=== PATIENT | female | born 1990 | race Caucasian/White ===

== ENCOUNTER 2017-06-22 17:52 | Observation (INO) | payer MEDICAID ==
--- NOTE | 2017-06-22 18:36 | ED PDOC ---
HPI: Abdomen Time Seen by Provider: 06/22/17 18:19 Chief Complaint (Nursing): Abdominal Pain Chief Complaint (Provider): Abdominal Pain History Per: Patient History/Exam Limitations: no limitations Onset/Duration Of Symptoms: Hrs Current Symptoms Are (Timing): Still Present Additional Complaint(s): Chris Holcomb is a 27 year old female with a history of congestive heary failure that presents to the ED with a chief complaint of burning epigastric pain that radiates to both arms that she began experiencing earlier this afternoon. Patient denies any shortness of breath, chest pain, palpitations, or dizziness. Past Medical History Reviewed: Historical Data, Nursing Documentation, Vital Signs Vital Signs: Last Vital Signs Temp 99.2 F 06/22/17 18:02 Pulse 94 H 06/22/17 18:02 Resp 20 06/22/17 18:02 BP 165/112 H 06/22/17 18:02 Pulse Ox 99 06/22/17 18:41 - Medical History PMH: CHF, HTN - Family History Family History: States: Unknown Family Hx - Allergies Allergies/Adverse Reactions: Allergies Allergy/AdvReac Type Severity Reaction Status Date / Time No Known Allergies Allergy Verified 10/30/14 10:49 Review of Systems Cardiovascular: Negative for: Chest Pain, Palpitations Respiratory: Negative for: Shortness of Breath Gastrointestinal: Positive for: Other (burning epigastric pain) Musculoskeletal: Positive for: Arm Pain (b/l arm pain as a result of radiating epigastric pain) Neurological: Negative for: Dizziness Physical Exam - Reviewed Nursing Documentation Reviewed: Yes Vital Signs Reviewed: Yes - Physical Exam Appears: Positive for: Non-toxic, No Acute Distress Head Exam: Positive for: ATRAUMATIC, NORMOCEPHALIC Skin: Positive for: Normal Color, Warm Cardiovascular/Chest: Positive for: Regular Rate, Rhythm. Negative for: Murmur Respiratory: Positive for: Normal Breath Sounds. Negative for: Wheezing Gastrointestinal/Abdominal: Positive for: Tenderness (mild epigastric tenderness ). Negative for: Normal Exam Extremity: Positive for: Normal ROM. Negative for: Tenderness, Swelling Neurologic/Psych: Positive for: Alert, Oriented. Negative for: Motor/Sensory Deficits - Laboratory Results Result Diagrams: 06/22/17 18:42 - ECG O2 Sat by Pulse Oximetry: 99 (RA) Pulse Ox Interpretation: Normal Medical Decision Making Medical Decision Making: Impression: Epigastric Pain Plan: * EKG * Chest X-Ray * CMP * CBC * Troponin * Adenosine Inj 12 mg * Reevaluation hospital monitor appears to be showing SVT at 180, however, repeat EKG reveals NSR at [address] changes. Scribe Attestation: Documented by Clary Gant, acting as a scribe for Manuel Soriano MD. Provider Scribe Attestation: All medical record entries made by the Scribe were at my direction and personally dictated by me. I have reviewed the chart and agree that the record accurately reflects my personal performance of the history, physical exam, medical decision making, and the department course for this patient. I have also personally directed, reviewed, and agree with the discharge instructions and disposition. Disposition - Clinical Impression Clinical Impression: Chest pain, Abdominal pain - Patient ED Disposition Is Patient to be Admitted: Transfer of Care - Disposition Disposition: Transfer of Care Disposition Time: 19:05 Condition: FAIR Forms: [employer] (Romanian) Patient Signed Over To: Benjamin Perez
[2017-06-22 18:55] LABS: BASO # 0.1 K/uL (0.0-0.2); EOS # 0.2 K/uL (0.0-0.7); EOS % 2.8 % (0.0-4.0); HEMATOCRIT 37.1 % (34.0-47.0); LYMPH # 3.3 K/uL (1.0-4.3); LYMPH % 39.2 % (20.0-40.0); MEAN CELL VOLUME 78.6 fl (81.0-99.0); MEAN CORPUSCULAR HEMOGLOBIN 24.8 pg (27.0-31.0); MEAN CORPUSCULAR HGB CONC 31.6 g/dL (33.0-37.0); MEAN PLATELET VOLUME 9.8 fl (7.2-11.7); MONO # 0.6 K/uL (0.0-0.8); MONO % 7.4 % (0.0-10.0); NEUT # 4.1 K/uL (1.8-7.0); NEUT % 49.6 % (50.0-75.0); NRBC % 0.1 % (0.0-0.0); WHITE BLOOD COUNT 8.3 K/uL (4.8-10.8)
[2017-06-22 19:05] LABS: ALB/GLOB RATIO 1.3 (1.0-2.1); ALKALINE PHOSPHATASE 75 U/L (38-126); ALT/SGPT 37 U/L (9-52); AST/SGOT 39 U/L (14-36); BILIRUBIN,TOTAL 0.3 mg/dl (0.2-1.3); BLOOD UREA NITROGEN 11 mg/dl (7-17); CALCIUM 8.3 mg/dL (8.4-10.2); CARBON DIOXIDE 24 mmol/L (22-30); CHLORIDE 105 mmol/L (98-107); GFR AFRICAN-AMERICAN > 60; GLUCOSE,RANDOM 81 mg/dL (65-105); POTASSIUM 3.6 MMOL/L (3.6-5.0); SODIUM 141 mmol/l (132-148); TOTAL PROTEIN 7.3 G/DL (6.3-8.2)
--- NOTE | 2017-06-22 19:07 | RAD ---
HISTORY: Cough. Technique: Single view portable semi erect @ 18:45. COMPARISON: No prior. FINDINGS: LUNGS: No active pulmonary disease. PLEURA: No significant pleural effusion identified, no pneumothorax apparent. CARDIOVASCULAR: Cardiomegaly. No evidence of acute, significant cardiovascular disease. OSSEOUS STRUCTURES: No significant abnormalities. VISUALIZED UPPER ABDOMEN: Normal. OTHER FINDINGS: None. IMPRESSION: No active disease.
--- NOTE | 2017-06-22 19:29 | ED PDOC ---
- Laboratory Results Result Diagrams: 06/22/17 18:42 06/22/17 18:42 - ECG O2 Sat by Pulse Oximetry: 99 (RA) Medical Decision Making Medical Decision Makin:00 Patient signed over to me by Dr. Soriano pending labs and reevaluation. 20:00 Lab results show no clinically significant abnormalities. Given patient's past medical history and risk factors, will be placed on Obs status for chest pain. Will be referred to Dr. Patton, medicine stationary boiler fireman. 20:24 Patient subsequently informed provider she has decided to leave against medical advice.. This in direct contradiction of provider's advice. Patient has assumed all risks and liabilities which include, but are not limited to and permanent disability. She was encouraged to return to this facility or any other facility of her choice should she reverse her decision. She also informed provider she will follow up with her E Business Manager (Dr Holly Thomas and PCP Dr Luna Augustin) Provider has spoken to Dr. Patton and informed him of patient's decision. Scribe Attestation: Documented by Clary Gant, acting as a scribe for Benjamin Perez MD. Provider Scribe Attestation: All medical record entries made by the Scribe were at my direction and personally dictated by me. I have reviewed the chart and agree that the record accurately reflects my personal performance of the history, physical exam, medical decision making, and the department course for this patient. I have also personally directed, reviewed, and agree with the discharge instructions and disposition. Disposition - Clinical Impression Clinical Impression: Chest pain, Abdominal pain - POA Present On Arrival: None - Disposition Disposition: AGAINST MEDICAL ADVICE Disposition Time: 20:24 Condition: FAIR
[2017-06-22 20:12] VITALS: RESP 18
[2017-06-22 20:29] VITALS: O2SAT 99
[2017-06-22 20:42] VITALS: BP 130/72; PULSE 81; TEMP 98.1
--- NOTE | 2017-06-23 09:13 | CARD ---
APPROVED REPORT EKG Measurement Heart [id number] ID [id number] <Conclusion> Normal sinus rhythm Moderate voltage criteria for LVH, may be normal variant Prolonged QT Abnormal ECG
== END 2017-06-22 20:42 | disposition left against medical advice (07) ==
LOC: H.ER 17:52 → H.ERHOLD 19:43
PROVIDERS: ADMIT Internal Medicine; ATTEND Internal Medicine
DX: R07.9 Chest pain, unspecified (principal); R10.9 Unspecified abdominal pain; I11.0 Hypertensive heart disease with heart failure; I50.9 Heart failure, unspecified
CPT/HCPCS: 71010; 80053; 81025; 82948; 84484; 85025; 93005; 99285; G0378

== ENCOUNTER 2018-01-03 20:03 | Observation (INO) | payer MEDICAID ==
[2018-01-03] MEDS ORDERED: Sodium Chloride 0.9% 500 ML IV STA (20:26)
--- NOTE | 2018-01-03 20:30 | ED PDOC ---
HPI: Chest Pain Time Seen by Provider: 01/03/18 20:13 Chief Complaint (Nursing): Chest Pain Chief Complaint (Provider): chest pain History Per: Patient History/Exam Limitations: no limitations Onset/Duration Of Symptoms: Days Current Symptoms Are (Timing): Still Present Additional Complaint(s): Pt. with chest pain. 1 week off and on sporadically. Pt. with dyspnea off and on. Pt. with no leg pain, long distance travel, or hormone tx. No weakness, dizziness. No headache. No fever, cough. No nausea, vomit, diarrhea. Past Medical History Reviewed: Nursing Documentation, Vital Signs Vital Signs: Last Vital Signs Temp Pulse 81 01/03/18 21:18 Resp 20 01/03/18 21:18 BP 139/87 01/03/18 21:18 Pulse Ox 100 01/03/18 21:18 - Medical History PMH: CHF, Diabetes, HTN - Surgical History Surgical History: Pacemaker - Family History Family History: States: Unknown Family Hx - Living Arrangements Living Arrangements: With Family - Social History Alcohol: None Drugs: Denies - Immunization History Hx Tetanus Toxoid Vaccination: Yes Hx Influenza Vaccination: No Hx Pneumococcal Vaccination: No - Allergies Allergies/Adverse Reactions: Allergies Allergy/AdvReac Type Severity Reaction Status Date / Time No Known Allergies Allergy Verified 01/03/18 20:09 Review of Systems ROS Statement: Except As Marked, All Systems Reviewed And Found Negative Cardiovascular: Positive for: Chest Pain Respiratory: Positive for: Shortness of Breath Physical Exam - Reviewed Nursing Documentation Reviewed: Yes Vital Signs Reviewed: Yes - Physical Exam Appears: Positive for: Non-toxic, No Acute Distress Head Exam: Positive for: ATRAUMATIC, NORMAL INSPECTION, NORMOCEPHALIC Skin: Positive for: Normal Color, Warm, DRY Eye Exam: Positive for: EOMI, Normal appearance, PERRL ENT: Positive for: Normal ENT Inspection Neck: Positive for: Normal, Painless ROM Cardiovascular/Chest: Positive for: Regular Rate, Rhythm Respiratory: Positive for: CNT, Normal Breath Sounds Gastrointestinal/Abdominal: Positive for: Normal Exam, Bowel Sounds, Soft. Negative for: Tenderness Back: Positive for: Normal Inspection. Negative for: L CVA Tenderness, R CVA Tenderness Extremity: Positive for: Normal ROM. Negative for: Tenderness, Pedal Edema Neurologic/Psych: Positive for: Alert, Oriented - Laboratory Results Result Diagrams: 01/03/18 21:06 01/03/18 21:06 Interpretation Of Abn Labs: 3.3 k - ECG ECG: Positive for: Interpreted By Me, Viewed By Me ECG Rhythm: Positive for: Sinus Rhythm, Nonspecific Changes - Radiology X-Ray: Interpreted by Me, Viewed By Me X-Ray Interpretation: No Acute Disease - Progress ED Course And Treament: 2240: Stable. AAOx3. Spoke with Dr. Foss. Will admit tell and give further orders when pt. reaches floor. Pt. is pain free currently and had asa 324mg by ambulance and ntg. Disposition - Clinical Impression Clinical Impression: Acute chest pain - Patient ED Disposition Is Patient to be Admitted: Yes Counseled Patient/Family Regarding: Studies Performed, Diagnosis - Disposition Disposition Time: 22:50 Condition: FAIR - POA Present On Arrival: None
[2018-01-03 21:17] LABS: BASO # 0.1 K/uL (0.0-0.2); BASO % 1.1 % (0.0-2.0); EOS # 0.2 K/uL (0.0-0.7); EOS % 2.2 % (0.0-4.0); HEMOGLOBIN 12.5 g/dL (12.0-16.0); LYMPH # 2.4 K/uL (1.0-4.3); LYMPH % 33.2 % (20.0-40.0); MEAN CELL VOLUME 77.1 fl (81.0-99.0); MEAN CORPUSCULAR HEMOGLOBIN 24.7 pg (27.0-31.0); MEAN CORPUSCULAR HGB CONC 32.1 g/dL (33.0-37.0); MEAN PLATELET VOLUME 9.3 fl (7.2-11.7); MONO # 0.4 K/uL (0.0-0.8); MONO % 6.1 % (0.0-10.0); NEUT # 4.1 K/uL (1.8-7.0); NEUT % 57.4 % (50.0-75.0); RBC 5.04 Mil/uL (3.80-5.20); RED CELL DISTRIBUTION WIDTH 15.8 % (11.5-14.5); WHITE BLOOD COUNT 7.2 K/uL (4.8-10.8)
[2018-01-03 21:23] LABS: ALB/GLOB RATIO 1.1 (1.0-2.1); ALBUMIN 4.1 g/dL (3.5-5.0); ALT/SGPT 41 U/L (9-52); AST/SGOT 41 U/L (14-36); BLOOD UREA NITROGEN 11 mg/dl (7-17); CALCIUM 9.2 mg/dL (8.4-10.2); GFR AFRICAN-AMERICAN > 60; GFR NON-AFRICAN AMERICAN > 60
[2018-01-03 21:24] LABS: PARTIAL THROMBOPLASTIN TIME 32.8 Seconds (25.6-37.1); PROTHROMBIN TIME 11.3 Seconds (9.8-13.1)
[2018-01-03 21:35] LABS: B-TYPE NATRIURETIC PEPTIDE 427 pg/ml (0-450)
[2018-01-03] MEDS ORDERED: Potassium Chloride 20 mEq ER Tab PO STA (22:43)
[2018-01-03] MEDS ORDERED: Potassium Chloride 20 mEq ER Tab PO ONE (23:38)
[2018-01-04 06:00] LABS: ALB/GLOB RATIO 1.1 (1.0-2.1); ALBUMIN 3.6 g/dL (3.5-5.0); ALT/SGPT 34 U/L (9-52); AST/SGOT 42 U/L (14-36); BLOOD UREA NITROGEN 13 mg/dl (7-17); CALCIUM 8.6 mg/dL (8.4-10.2); GFR AFRICAN-AMERICAN > 60; GFR NON-AFRICAN AMERICAN > 60
[2018-01-04 06:09] LABS: HEMOGLOBIN 11.5 g/dL (12.0-16.0); MEAN CELL VOLUME 76.2 fl (81.0-99.0); MEAN CORPUSCULAR HGB CONC 32.8 g/dL (33.0-37.0); RBC 4.6 Mil/uL (3.80-5.20); RED CELL DISTRIBUTION WIDTH 15.1 % (11.5-14.5); WHITE BLOOD COUNT 7.5 K/uL (4.8-10.8)
--- NOTE | 2018-01-04 08:35 | CP.PCM.HP ---
History of Present Illness - History of Present Illness History of Present Illness: Patient evaluated with Dr Foss during rounds 27 y/o obese, presented to ED c/o intermittent CP and SOB for 1 week. She has strong cardiac hx including cardiomyopathy and is s/p AICD. Patient was admitted for ccardiology evaluation and monitoring. Today patient is in not acute distress, speak full sentences, no acute events overnight. Denies CP or SOB at ths time. denies abd pain, vomiting, nausea, headache or vision changes. Present on Admission - Present on Admission Any Indicators Present on Admission: No Review of Systems - Review of Systems All systems: reviewed and no additional remarkable complaints except (as per HPi ) Past Patient History - Past Medical History & Family History Past Medical History?: Yes - Past Social History Smoking Status: Never Smoked - CARDIAC Hx Cardiac Disorders: Yes Hx Congestive Heart Failure: Yes Hx Hypertension: Yes Hx Internal Defibrillator: Yes - PULMONARY Hx Respiratory Disorders: Yes Hx Sleep Apnea: Yes - RENAL Hx Chronic Kidney Disease: No - ENDOCRINE/METABOLIC Hx Diabetes Mellitus Type 2: Yes - MUSCULOSKELETAL/RHEUMATOLOGICAL Hx Falls: No - PSYCHIATRIC Hx Substance Use: No - SURGICAL HISTORY Hx Surgeries: Yes Other/Comment: AICD - ANESTHESIA Hx Anesthesia: Yes Hx Anesthesia Reactions: No Meds Allergies/Adverse Reactions: Allergies Allergy/AdvReac Type Severity Reaction Status Date / Time No Known Allergies Allergy Verified 01/03/18 20:09 Physical Exam - Constitutional Appears: Non-toxic, No Acute Distress - Head Exam Head Exam: NORMAL INSPECTION - Eye Exam Eye Exam: EOMI, PERRL - ENT Exam ENT Exam: Mucous Membranes Moist - Respiratory Exam Respiratory Exam: Decreased Breath Sounds, Clear to Auscultation Bilateral, NORMAL BREATHING PATTERN. absent: Rales, Wheezes, Respiratory Distress - Cardiovascular Exam Cardiovascular Exam: REGULAR RHYTHM, +S1, +S2. absent: Gallop - GI/Abdominal Exam GI & Abdominal Exam: Normal Bowel Sounds, Soft. absent: Diminished Bowel Sounds , Distended, Firm, Guarding, Rebound, Rigid, Tenderness - Extremities Exam Extremities exam: Positive for: normal capillary refill, pedal edema (trace). Negative for: calf tenderness, joint swelling, tenderness - Back Exam Back exam: absent: CVA tenderness (L), CVA tenderness (R) - Neurological Exam Neurological exam: Alert, Oriented x3 - Psychiatric Exam Psychiatric exam: Normal Affect, Normal Mood - Skin Skin Exam: Normal Color, Warm Results - Vital Signs Recent Vital Signs: Last Vital Signs Temp 98.3 F 01/04/18 08:00 Pulse 83 01/04/18 08:00 Resp 20 01/04/18 08:00 BP 115/76 01/04/18 08:00 Pulse Ox 98 01/04/18 08:00 - Labs Result Diagrams: 01/04/18 05:27 01/04/18 05:27 Labs: Laboratory Results - last 24 hr 01/03/18 01/03/18 01/03/18 21:06 21:06 21:06 WBC 7.2 RBC 5.04 Hgb 12.5 Hct 38.9 MCV 77.1 L MCH 24.7 L MCHC 32.1 L RDW 15.8 H Plt Count 234 MPV 9.3 Neut % (Auto) 57.4 Lymph % (Auto) 33.2 [place] % (Auto) 6.1 Eos % (Auto) 2.2 Baso % (Auto) 1.1 Neut # (Auto) 4.1 Lymph # (Auto) 2.4 [place] # (Auto) 0.4 Eos # (Auto) 0.2 Baso # (Auto) 0.1 PT 11.3 INR 1.0 APTT 32.8 Sodium 144 Potassium 3.3 L Chloride 101 Carbon Dioxide 30 Anion Gap 16 BUN 11 Creatinine 0.9 Est GFR ( Amer) > 60 Est GFR (Non-Af Amer) > 60 Random Glucose 111 H Calcium 9.2 Total Bilirubin 0.6 AST 41 H ALT 41 Alkaline Phosphatase 62 Troponin I 0.0290 NT-Pro-B Natriuret Pep 427 Total Protein 7.8 Albumin 4.1 Globulin 3.7 Albumin/Globulin Ratio 1.1 01/04/18 01/04/18 05:27 05:27 WBC 7.5 RBC 4.60 Hgb 11.5 L Hct 35.0 MCV 76.2 L MCH 25.0 L MCHC 32.8 L RDW 15.1 H Plt Count 240 MPV Neut % (Auto) Lymph % (Auto) [place] % (Auto) Eos % (Auto) Baso % (Auto) Neut # (Auto) Lymph # (Auto) [place] # (Auto) Eos # (Auto) Baso # (Auto) PT INR APTT Sodium 142 Potassium 3.2 L Chloride 100 Carbon Dioxide 32 H Anion Gap 13 BUN 13 Creatinine 1.0 Est GFR ( Amer) > 60 Est GFR (Non-Af Amer) > 60 Random Glucose 123 H Calcium 8.6 Total Bilirubin 0.3 AST 42 H ALT 34 Alkaline Phosphatase 63 Troponin I NT-Pro-B Natriuret Pep Total Protein 6.9 Albumin 3.6 Globulin 3.3 Albumin/Globulin Ratio 1.1 Assessment & Plan - Assessment and Plan (Free Text) Assessment: Dilated Cardiomyopathy/Systolic chronic CHF AICD status Atypical CP and SOB on exertion Hypokalemia Cardiology consult appreciated HCTZ 12.5 mg daily VS stable replace potassium F/U Echo EKG: LVH, no acute ischemic changes
[2018-01-04] MEDS ORDERED: Enoxaparin 40 mg Syringe SC SCH (09:00)
[2018-01-04] MEDS ORDERED: Enoxaparin 60 mg Syringe SC SCH (09:00)
--- NOTE | 2018-01-04 09:06 | RAD ---
HISTORY: dyspnea COMPARISON: 06/22/2017 FINDINGS: LUNGS: No active pulmonary disease. PLEURA: No significant pleural effusion identified, no pneumothorax apparent. CARDIOVASCULAR: AICD noted. Electrode appears to enter left lateral chest wall. Please correlate. OSSEOUS STRUCTURES: No significant abnormalities. VISUALIZED UPPER ABDOMEN: Normal. OTHER FINDINGS: None. IMPRESSION: No active disease.
[2018-01-04 11:47] VITALS: RESP 20; O2SAT 98
--- NOTE | 2018-01-04 12:10 | CP.PCM.CON ---
History of Present Illness - History of Present Illness History of Present Illness: Patient seen/examined. full consutl to follow. Patient has known cardiomyopathy and is s/p AICD needs blood pressure compliance. recommend replete K. otherwise stable for d/c. Past Patient History - Past Medical History & Family History Past Medical History?: Yes - Past Social History Smoking Status: Never Smoked - CARDIAC Hx Cardiac Disorders: Yes Hx Congestive Heart Failure: Yes Hx Hypertension: Yes Hx Internal Defibrillator: Yes - PULMONARY Hx Respiratory Disorders: Yes Hx Sleep Apnea: Yes - RENAL Hx Chronic Kidney Disease: No - ENDOCRINE/METABOLIC Hx Diabetes Mellitus Type 2: Yes - MUSCULOSKELETAL/RHEUMATOLOGICAL Hx Falls: No - PSYCHIATRIC Hx Substance Use: No - SURGICAL HISTORY Hx Surgeries: No - ANESTHESIA Hx Anesthesia: Yes Hx Anesthesia Reactions: No Meds Allergies/Adverse Reactions: Allergies Allergy/AdvReac Type Severity Reaction Status Date / Time No Known Allergies Allergy Verified 01/03/18 20:09 - Medications Medications: Current Medications Aspirin (Aspirin Chewable) 81 mg PO DAILY [facility] Last Admin: 01/04/18 08:27 Dose: 81 mg Enoxaparin Sodium (Lovenox) 60 mg SC DAILY [facility] PRN Reason: Protocol Hydrochlorothiazide (Microzide) 12.5 mg PO DAILY [facility] Last Admin: 01/04/18 08:27 Dose: 12.5 mg Results - Vital Signs Recent Vital Signs: Last Vital Signs Temp 98.3 F 01/04/18 08:00 Pulse 83 01/04/18 08:00 Resp 20 01/04/18 08:00 BP 115/76 01/04/18 08:00 Pulse Ox 98 01/04/18 08:00 - Labs Result Diagrams: 01/04/18 05:27 01/04/18 05:27 Labs: Laboratory Results - last 24 hr 01/03/18 01/03/18 01/03/18 21:06 21:06 21:06 WBC 7.2 RBC 5.04 Hgb 12.5 Hct 38.9 MCV 77.1 L MCH 24.7 L MCHC 32.1 L RDW 15.8 H Plt Count 234 MPV 9.3 Neut % (Auto) 57.4 Lymph % (Auto) 33.2 [place] % (Auto) 6.1 Eos % (Auto) 2.2 Baso % (Auto) 1.1 Neut # (Auto) 4.1 Lymph # (Auto) 2.4 [place] # (Auto) 0.4 Eos # (Auto) 0.2 Baso # (Auto) 0.1 PT 11.3 INR 1.0 APTT 32.8 Sodium 144 Potassium 3.3 L Chloride 101 Carbon Dioxide 30 Anion Gap 16 BUN 11 Creatinine 0.9 Est GFR ( Amer) > 60 Est GFR (Non-Af Amer) > 60 Random Glucose 111 H Calcium 9.2 Total Bilirubin 0.6 AST 41 H ALT 41 Alkaline Phosphatase 62 Troponin I 0.0290 NT-Pro-B Natriuret Pep 427 Total Protein 7.8 Albumin 4.1 Globulin 3.7 Albumin/Globulin Ratio 1.1 01/04/18 01/04/18 05:27 05:27 WBC 7.5 RBC 4.60 Hgb 11.5 L Hct 35.0 MCV 76.2 L MCH 25.0 L MCHC 32.8 L RDW 15.1 H Plt Count 240 MPV Neut % (Auto) Lymph % (Auto) [place] % (Auto) Eos % (Auto) Baso % (Auto) Neut # (Auto) Lymph # (Auto) [place] # (Auto) Eos # (Auto) Baso # (Auto) PT INR APTT Sodium 142 Potassium 3.2 L Chloride 100 Carbon Dioxide 32 H Anion Gap 13 BUN 13 Creatinine 1.0 Est GFR ( Amer) > 60 Est GFR (Non-Af Amer) > 60 Random Glucose 123 H Calcium 8.6 Total Bilirubin 0.3 AST 42 H ALT 34 Alkaline Phosphatase 63 Troponin I NT-Pro-B Natriuret Pep Total Protein 6.9 Albumin 3.6 Globulin 3.3 Albumin/Globulin Ratio 1.1
--- NOTE | 2018-01-04 12:10 | CP.PCM.CON ---
Past Patient History - Past Medical History & Family History Past Medical History?: Yes - Past Social History Smoking Status: Never Smoked - CARDIAC Hx Cardiac Disorders: Yes Hx Congestive Heart Failure: Yes Hx Hypertension: Yes Hx Internal Defibrillator: Yes - PULMONARY Hx Respiratory Disorders: Yes Hx Sleep Apnea: Yes - RENAL Hx Chronic Kidney Disease: No - ENDOCRINE/METABOLIC Hx Diabetes Mellitus Type 2: Yes - MUSCULOSKELETAL/RHEUMATOLOGICAL Hx Falls: No - PSYCHIATRIC Hx Substance Use: No - SURGICAL HISTORY Hx Surgeries: No - ANESTHESIA Hx Anesthesia: Yes Hx Anesthesia Reactions: No Meds Allergies/Adverse Reactions: Allergies Allergy/AdvReac Type Severity Reaction Status Date / Time No Known Allergies Allergy Verified 01/03/18 20:09 - Medications Medications: Current Medications Aspirin (Aspirin Chewable) 81 mg PO DAILY [facility] Last Admin: 01/04/18 08:27 Dose: 81 mg Enoxaparin Sodium (Lovenox) 60 mg SC DAILY [facility] PRN Reason: Protocol Hydrochlorothiazide (Microzide) 12.5 mg PO DAILY [facility] Last Admin: 01/04/18 08:27 Dose: 12.5 mg Results - Vital Signs Recent Vital Signs: Last Vital Signs Temp 98.3 F 01/04/18 08:00 Pulse 83 01/04/18 08:00 Resp 20 01/04/18 08:00 BP 115/76 01/04/18 08:00 Pulse Ox 98 01/04/18 08:00 - Labs Result Diagrams: 01/04/18 05:27 01/04/18 05:27 Labs: Laboratory Results - last 24 hr 01/03/18 01/03/18 01/03/18 21:06 21:06 21:06 WBC 7.2 RBC 5.04 Hgb 12.5 Hct 38.9 MCV 77.1 L MCH 24.7 L MCHC 32.1 L RDW 15.8 H Plt Count 234 MPV 9.3 Neut % (Auto) 57.4 Lymph % (Auto) 33.2 [place] % (Auto) 6.1 Eos % (Auto) 2.2 Baso % (Auto) 1.1 Neut # (Auto) 4.1 Lymph # (Auto) 2.4 [place] # (Auto) 0.4 Eos # (Auto) 0.2 Baso # (Auto) 0.1 PT 11.3 INR 1.0 APTT 32.8 Sodium 144 Potassium 3.3 L Chloride 101 Carbon Dioxide 30 Anion Gap 16 BUN 11 Creatinine 0.9 Est GFR ( Amer) > 60 Est GFR (Non-Af Amer) > 60 Random Glucose 111 H Calcium 9.2 Total Bilirubin 0.6 AST 41 H ALT 41 Alkaline Phosphatase 62 Troponin I 0.0290 NT-Pro-B Natriuret Pep 427 Total Protein 7.8 Albumin 4.1 Globulin 3.7 Albumin/Globulin Ratio 1.1 01/04/18 01/04/18 05:27 05:27 WBC 7.5 RBC 4.60 Hgb 11.5 L Hct 35.0 MCV 76.2 L MCH 25.0 L MCHC 32.8 L RDW 15.1 H Plt Count 240 MPV Neut % (Auto) Lymph % (Auto) [place] % (Auto) Eos % (Auto) Baso % (Auto) Neut # (Auto) Lymph # (Auto) [place] # (Auto) Eos # (Auto) Baso # (Auto) PT INR APTT Sodium 142 Potassium 3.2 L Chloride 100 Carbon Dioxide 32 H Anion Gap 13 BUN 13 Creatinine 1.0 Est GFR ( Amer) > 60 Est GFR (Non-Af Amer) > 60 Random Glucose 123 H Calcium 8.6 Total Bilirubin 0.3 AST 42 H ALT 34 Alkaline Phosphatase 63 Troponin I NT-Pro-B Natriuret Pep Total Protein 6.9 Albumin 3.6 Globulin 3.3 Albumin/Globulin Ratio 1.1
[2018-01-04] MEDS ORDERED: Perflutren Lipid Microsphere 1.5 ML SUS IV ONE (12:11)
[2018-01-04] MEDS ORDERED: Potassium Chloride 20 mEq ER Tab PO ONE (12:50)
[2018-01-04 16:19] VITALS: BP 133/83; PULSE 88; TEMP 98.4
--- NOTE | 2018-01-04 17:51 | CARD ---
APPROVED REPORT EXAM: Two-dimensional and M-mode echocardiogram with Doppler, color Doppler with contrast. Other Information Quality : GoodRhythm : NSR INDICATION Chest Pain Surgery/Intervention ICD/Pacemaker: Date: 2016 2D DIMENSIONS IVSd0.83 (0.7-1.1cm)LVDd8.03 (3.9-5.9cm) LVOT Diameter2.42 (1.8-2.4cm)PWd1.09 (0.7-1.1cm) IVSs0.58 (0.8-1.2cm)LVDs7.01 (2.5-4.0cm) FS (%) 12.7 %PWs1.08 (0.8-1.2cm) LVEF (%)15.0 (>50%) M-Mode DIMENSIONS Left Atrium (MM)5.03 (2.5-4.0cm)IVSd1.38 (0.7-1.1cm) Aortic Root2.94 (2.2-3.7cm)LVDd7.53 (4.0-5.6cm) Aortic Cusp Exc.2.09 (1.5-2.0cm)PWd1.28 (0.7-1.1cm) IVSs1.56 cmFS (%) 17 % LVDs6.28 (2.0-3.8cm)PWs1.63 cm Mitral Valve MV E Ggzjtlxm800.4cm/sMV DECEL [id number] A Ecicbeaz37.0cm/s MV WHJ83iaV/A ratio1.3MVA (PHT)3.13cm2 TDI E/Lateral E'0.0E/Medial E'0.0 Pulmonary Valve PV Peak Iqqdrhet408.6cm/s Tricuspid Valve TR Peak Ntbajmhp447gc/sRAP [id number] Peak Gr.28mmHg [id number] LEFT VENTRICLE The Left Ventricle is severely dilated. There is normal left ventricular wall thickness. The systolic function is severely impaired. There is global hypokinesis of the left ventricle. Transmitral Doppler flow pattern is abnormal. No left ventricle thrombus noted on this study. RIGHT VENTRICLE The right ventricle is normal size. There is normal right ventricular wall thickness. Systolic function is mildly reduced. ATRIA The left atrium is moderately dilated. The right atrium is mildly dilated. AORTIC VALVE The aortic valve is not well visualized. No aortic regurgitation is present. There is no aortic valvular stenosis. MITRAL VALVE The mitral valve is moderately thickened. There is no mitral valve stenosis. Mitral regurgitation is moderate. TRICUSPID VALVE The tricuspid valve is normal in structure. There is mild pulmonary hypertension. PULMONIC VALVE The pulmonary valve is normal in structure. There is no pulmonic valvular regurgitation. GREAT VESSELS The aortic root is normal in size. The IVC was not visualized. PERICARDIAL EFFUSION The pericardium appears normal. <Conclusion> The Left Ventricle is severely dilated. There is normal left ventricular wall thickness. The systolic function is severely impaired. There is global hypokinesis of the left ventricle. No left ventricle thrombus noted on this study. Mitral regurgitation is moderate. There is mild pulmonary hypertension.
--- NOTE | 2018-01-04 18:37 | CARD ---
APPROVED REPORT EKG Measurement Heart [id number] <Conclusion> Normal sinus rhythm Minimal voltage criteria for LVH, may be normal variant Prolonged QT Abnormal ECG
== END 2018-01-04 15:28 | disposition home or self-care (01) ==
LOC: H.ER 20:03 → H.ERHOLD 22:51 → H.TEL 01-04 01:21
PROVIDERS: ADMIT Internal Medicine; ATTEND Internal Medicine
DX: R07.89 Other chest pain (principal); I50.22 Chronic systolic (congestive) heart failure; I11.0 Hypertensive heart disease with heart failure; I42.0 Dilated cardiomyopathy; E87.6 Hypokalemia; E11.9 Type 2 diabetes mellitus without complications; G47.30 Sleep apnea, unspecified; E66.9 Obesity, unspecified; Z95.810 Presence of automatic (implantable) cardiac defibrillator
CPT/HCPCS: 36415; 71045; 80053; 83880; 84484; 85025; 85027; 85610; 85730; 93005; 93306; 94660; 99285; G0378; J7040

== ENCOUNTER 2018-09-06 13:23 | Emergency (ER) | payer MEDICAID, OTHER ==
[2018-09-06 13:42] VITALS: BMI 42.3
[2018-09-06] MEDS ORDERED: Iohexol 240 (50 ml) PO ONE (14:00)
[2018-09-06 14:34] LABS: BASO % 0.7 % (0.0-2.0); EOS # 0.1 K/uL (0.0-0.7); EOS % 1.4 % (0.0-4.0); HEMOGLOBIN 11.4 g/dL (12.0-16.0); LYMPH # 1.7 K/uL (1.0-4.3); LYMPH % 30.4 % (20.0-40.0); MEAN CELL VOLUME 84.7 fl (81.0-99.0); MEAN CORPUSCULAR HEMOGLOBIN 27.5 pg (27.0-31.0); MEAN CORPUSCULAR HGB CONC 32.4 g/dL (33.0-37.0); MEAN PLATELET VOLUME 10.3 fl (7.2-11.7); MONO # 0.4 K/uL (0.0-0.8); MONO % 7.8 % (0.0-10.0); NEUT # 3.3 K/uL (1.8-7.0); NEUT % 59.7 % (50.0-75.0); NRBC % 0.1 % (0.0-0.0); RBC 4.14 Mil/uL (3.80-5.20); RED CELL DISTRIBUTION WIDTH 13.3 % (11.5-14.5); WHITE BLOOD COUNT 5.5 K/uL (4.8-10.8)
[2018-09-06 14:46] LABS: ALB/GLOB RATIO 1.1 (1.0-2.1); ALBUMIN 3.6 g/dL (3.5-5.0); ALT/SGPT 21 U/L (9-52); AST/SGOT 21 U/L (14-36); BLOOD UREA NITROGEN 7 mg/dl (7-17); CALCIUM 8.8 mg/dL (8.4-10.2); GFR NON-AFRICAN AMERICAN > 60
[2018-09-06 15:41] LABS: SQUAMOUS EPITHIAL 2 /hpf (0-5); URINE BILIRUBIN NEGATIVE (NEGATIVE); URINE BLOOD NEGATIVE (NEGATIVE); URINE COLOR AMBER (YELLOW); URINE GLUCOSE (UA) NEG (Normal); URINE HYALINE CAST 0-2 /hpf (0-2); URINE LEUKOCYTE ESTERASE NEG Leu/uL (Negative); URINE PROTEIN 30 mg/dL (NEGATIVE)
[2018-09-06 15:43] LABS: URINE CLARITY SLIGHT-CLOUDY (Clear)
--- NOTE | 2018-09-06 17:51 | US ---
HISTORY: , upper abd pain, hx gastric sleeve COMPARISON: Abdominal ultrasound performed 11/14/13 TECHNIQUE: Sonographic evaluation of the abdomen. FINDINGS: LIVER: Measures 18.2 cm in sagittal dimension and appears within normal limits of size, shape, and echotexture. No focal hepatic mass identified. The main portal vein appears patent with normal directional flow. No intrahepatic bile duct dilatation. GALLBLADDER: No gallstones. No gallbladder wall thickening. Negative sonographic Pandey's sign as assessed by the staff toxicologist. COMMON BILE DUCT: Measures 2 mm. PANCREAS: Not well visualized. RIGHT KIDNEY: Measures 11.1 x 4.2 x 5.2cm. No obstructing calculus or hydronephrosis identified. LEFT KIDNEY: Measures 11.7 x 3.9 x 5.6cm. No obstructing calculus or hydronephrosis identified. SPLEEN: Measures approximately 8.1 cm. AORTA: Limited views appear unremarkable. IVC: Limited views appear unremarkable. OTHER FINDINGS: None. IMPRESSION: Unremarkable abdominal sonogram with findings as above.
--- NOTE | 2018-09-06 17:58 | US ---
Date of service: 09/06/2018 Indication: w pain Comparison: None available Technique: Transabdominal pelvic ultrasound Findings: Uterus measures 10.4 x 5.5 x 6.7 cm. Anteverted. Cervix length measures 5.2 cm. There is a single intrauterine fetus present. 4 mm yolk sac. The gestational sac measures 2.2 cm and is compatible with a gestational age of 6 weeks 5 days. The crown-rump length measures 0.8 cm and is compatible with a gestational age of 6 weeks 5 days There is heart motion which measured 137 BPM. The right ovary measures 2.7 x 1.4 x 2.0 cm. The left ovary measures 3.2 x 3.3 x 2.1 cm. Blood flow was demonstrated to both ovaries. Impression: Live single intrauterine with estimated gestational age 6 weeks 5 days. heart rate 137 bpm. Advise an anomaly screen at 16-18 weeks gestational age
--- NOTE | 2018-09-06 18:23 | ED PDOC ---
HPI: General Adult Time Seen by Provider: 09/06/18 13:53 Chief Complaint (Nursing): Dizziness/Lightheaded Chief Complaint (Provider): palpitations, left upper abd pain, headache History Per: Patient History/Exam Limitations: no limitations Current Symptoms Are (Timing): Intermittent Episodes Recently: Treated By A Physician Additional Complaint(s): 28yo female hx cardiomyopathy has AICD sees Dr Thomas, notes mild dizziness, palpitations and upper abdominal discomfort ongoing for [address] Thomas yesterday started coreg 12.5mg today but also had symptoms prior to this. Denies chest pain, syncope, vomiting or melena. LMP early july. . Past Medical History Vital Signs: Last Vital Signs Temp 98.5 F 09/06/18 13:40 Pulse 85 09/06/18 13:40 Resp 16 09/06/18 13:40 BP 138/97 H 09/06/18 13:40 Pulse Ox 98 09/06/18 13:40 - Medical History PMH: CHF, Diabetes, HTN, Mitral Valve Prolapse, Sleep Apnea Denies: Chronic Kidney Disease - Surgical History Surgical History: Pacemaker - Family History Family History: States: Unknown Family Hx - Immunization History Hx Tetanus Toxoid Vaccination: Yes Hx Influenza Vaccination: No Hx Pneumococcal Vaccination: No - Home Medications Home Medications: Ambulatory Orders Medication Instructions Recorded Aspirin [Aspirin Chewable] 01/03/18 Omeprazole 01/03/18 hydroCHLOROthiazide [Microzide] 01/03/18 Potassium Chloride 20 meq PO DAILY #3 tab.er.prt 01/04/18 Pnv No.95/Ferrous Fum/Folic AC 1 tab PO DAILY #20 tab 09/06/18 [Prenavite] - Allergies Allergies/Adverse Reactions: Allergies Allergy/AdvReac Type Severity Reaction Status Date / Time No Known Allergies Allergy Verified 09/06/18 13:48 - Laboratory Results Result Diagrams: 09/06/18 14:25 09/06/18 14:25 - ECG O2 Sat by Pulse Oximetry: 98 Medical Decision Making Medical Decision Making: pt found to be , CT cancelled OB workup initiated and Abd and OB Transvag US with BQuant ordered trop neg US reports reviewed and patient updated on results On re-eval states felt better and abd pain mostly resolved. no vomiting. Mild headache but c/w priors. 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 BP stable on discharge. Disposition - Clinical Impression Clinical Impression: , Dizziness, Abdominal pain - Patient ED Disposition Is Patient to be Admitted: No Counseled Patient/Family Regarding: Studies Performed, Diagnosis, Need For Followup, Rx Given - Disposition Referrals: Yovany Thomas MD [Staff Provider] - Disposition: Routine/Home Disposition Time: 17:20 Condition: STABLE Additional Instructions: Followup with Dr Thomas and OB for further testing and treatment. Return to ER for any new or worsening symptoms. Prescriptions: Pnv No.95/Ferrous Fum/Folic AC [Prenavite] 1 tab PO DAILY #20 tab Instructions: Medications and , - The Second Month Forms: [facility] (Telugu), [facility] ED School/Work Excuse
[2018-09-06 18:45] VITALS: BP 138/72; PULSE 82; RESP 18; TEMP 98.6
[2018-09-07 10:38] VITALS: O2SAT 98
--- NOTE | 2018-09-07 20:05 | CARD ---
APPROVED REPORT Date of service: 09/06/2018 EKG Measurement Heart [id number] <Conclusion> Normal sinus rhythm Minimal voltage criteria for LVH, may be normal variant Nonspecific ST and T wave abnormality Abnormal ECG
== END 2018-09-06 18:24 | disposition home or self-care (01) ==
LOC: H.ER 13:23
DX: O26.891 Other specified pregnancy related conditions, first trimester (principal); R42 Dizziness and giddiness; O24.911 Unspecified diabetes mellitus in pregnancy, first trimester; O16.1 Unspecified maternal hypertension, first trimester; Z3A.01 Less than 8 weeks gestation of pregnancy; Z95.0 Presence of cardiac pacemaker; Z79.899 Other long term (current) drug therapy